=== PATIENT | female | born 1980 | race Caucasian/White ===

== ENCOUNTER 2024-10-08 16:42 | Emergency (ER) | payer BC ==
[~2024-10-08] VITALS: Ht 180.3 cm; Wt 69.1 kg
[2024-10-08 17:04] VITALS: TEMP 97.6
--- NOTE | 2024-10-08 17:14 | Physician Documentation ---
History of Present Illness ~ Chief Complaint: Flank Pain Stated Complaint: BACK PAIN Time Seen by MD: 18:03 OK to notify your PCP?: Yes Source: patient Mode of Arrival: POV Exam Limitations: no limitations HPI 44-year-old female presents for spontaneous left-sided flank pain which started at 3:00 p.m. today with associated nausea and vomiting she did take 650 mg of Tylenol prior to arrival and experienced some symptom relief. She endorses increase urinary frequency, no hematuria or lower abdominal pain. She does not have a history of kidney stones. Medication Reconciliation Allergies: Coded Allergies: aspirin (Verified Allergy, Unknown, 10/08/24) ibuprofen (Verified Allergy, Unknown, RASH, 10/08/24) Review of Systems All Other Systems at this time: Reviewed and Negative Physical Exam Vital Signs: RN Vital Signs have been reviewed: Yes, Temperature: 97.6, Source: Oral, Heart Rate: 85, Respiratory Rate: 16, BP: 127/72, Pulse Oximetry: 99, Weight: 69.100 Oxygen Flow Rate: 0 Pulse Oximetry Reflects: adequate oxygenation Physical Exam General: Alert, no distress. HEENT: No injection, moist mucous membranes. Neck: Full range of motion. Respiratory: No respiratory distress, equal chest rise and fall. Chest: No accessory muscle use. Cardiovascular: Regular rate and rhythm. Gastrointestinal: Nondistended. Extremities: Normal range of motion, no deformity. Neurologic: Oriented x4. Psychiatric: Normal mood and affect. Skin: Normal color, warm and dry. Progress Results/Orders Results/Orders Orders - SIDRA LOPEZ MD Ct Abdomen Pelvis (10/08/24 18:03) Completed Orders - SIDRA LOPEZ MD Ct Abdomen Pelvis (10/08/24 18:03) Vital Signs 10/08/24 10/08/24 10/08/24 10/08/24 17:04 18:52 18:52 20:58 Temp 97.6 Pulse 85 68 65 Resp 16 18 18 18 B/P (MAP) 127/72 123/70 (87) 126/74 Pulse Ox 99 98 98 O2 Flow Rate 0 Laboratory Tests Test 10/08/24 17:20 10/08/24 17:31 Urine Specimen Description Cln catch midstream Urine Color Yellow Urine Clarity Slightly cloudy Urine pH 6.0 Urine Specific Mullan 1.025 Urine Protein Trace Urine Glucose (UA) Negative Urine Ketones 15 H Urine Occult Blood Large H Urine Nitrite Negative Urine Bilirubin Negative Urine Urobilinogen 0.2 Urine Leukocyte Esterase Negative Urine RBC 50-100 Urine WBC 0-4 Urine Squamous Epithelial Cells Few Urine Bacteria None seen Urine Mucus Few Urine Culture Indicated Not ind Volume Urine Centrifuged 10 ml Urine HCG, Qualitative Negative Urine Comment White Blood Count 6.7 Red Blood Count 5.00 Hemoglobin 15.2 Hematocrit 45.4 H Mean Corpuscular Volume 91.0 Mean Corpuscular Hemoglobin 30.4 Mean Corpuscular Hemoglobin Concent 33.4 Red Cell Distribution Width 13.3 Platelet Count 218 Mean Platelet Volume 9.3 Neutrophils (%) (Auto) 78.1 H Lymphocytes (%) (Auto) 18.1 L Monocytes (%) (Auto) 2.7 Eosinophils (%) (Auto) 0.9 Basophils (%) (Auto) 0.2 Neutrophils # (Auto) 5.2 Lymphocytes # (Auto) 1.2 Monocytes # (Auto) 0.2 Eosinophils # (Auto) 0.1 Basophils # (Auto) 0.0 CBC Comment Sodium Level 141 Potassium Level 4.6 Chloride Level 104 Carbon Dioxide Level 27.4 Anion Gap 10 Blood Urea Nitrogen 23 H Creatinine 0.93 H Estimated GFR/1.73 m2 65 BUN/Creatinine Ratio 24.7 H Glucose Level 107 H Calcium Level 9.8 Albumin 4.9 Chemistry Comments Medical Decision Making Findings 44 year old female with severe L flank pain today which is now resolved by the time I examine her. Her workup was significant for blood in the urine and faint hydronephrosis of the L ureter, consistent with a kidney stone which had already passed. Also noted was an incidental R kidney mass of about 6cm in size, which we spent some time discussing with the patient, particularly the importance of following up immediately with her PCP to arrange a surgical biopsy. She and her significant other verbalized an understanding of the importance of following up on this incidental finding. Counseled, reassured, discharged with return precautions. Departure Disposition: 01 HOME / SELF CARE / HOMELESS Impression: Primary Impression: Calculus of kidney Condition: Stable Discharge Instructions: Kidney Stones Referrals: NO PRIMARY CARE PROVIDER (PCP) Education Educated: Patient, Family Educated regarding: diagnosis, treatment, prognosis, need for follow up Additional Comment Medical Screen Exam This patient recieved a medical screening examination. After reviewing the individual's medical complaints with presenting symptoms and performing an appropriate physical examination, it was determined that no immediate life- threatening emergency medical condition is present. This individual is also not a women having contractions. Signature Scribe Signature: . Attestation: . MILI CERNA Oct 08, 2024 17:14 SIDRA LOPEZ MD Oct 08, 2024 18:48
[2024-10-08 17:41] LABS: MEAN PLATELET VOLUME 9.3 FL (7.4-10.4); RED CELL DISTRIBUTION WIDTH 13.3 % (11.5-14.5)
[2024-10-08 17:45] LABS: LEUKOCYTE ESTERASE ,URINE NEGATIVE (Neg); NITRITES, URINE NEGATIVE (Neg); OCCULT BLOOD,URINE LARGE (Neg)
[2024-10-08 17:48] LABS: UA COLLECTION TYPE CLN CATCH MIDSTREAM
[2024-10-08 17:50] LABS: CREATININE 0.93 MG/DL (0.40-0.90); TOTAL CARBON DIOXIDE 27.4 MMOL/L (24-32); eCRCL 83 ML/MIN; eGFR 65 ML/MIN
[2024-10-08 17:52] LABS: MUCUS STRANDS FEW /LPF (Neg); SQUAMOUS EPITHELIAL CELL,UR FEW /LPF (FEW)
[2024-10-08 17:54] LABS: URINE HCG NEGATIVE (NEG)
--- NOTE | 2024-10-08 18:55 | RADIOLOGY REPORT ---
Exam: CT CT ABDOMEN PELVIS History: flank pain Comparison Study: None Technique: Multidetector spiral CT of the abdomen was performed from lung bases to pubic symphysis. Imaging was performed without IV contrast. Axial, coronal and sagittal multiplanar reformats were ob tained from the axial data set by the technologist. Radiation Dose : 1. Abdomen/Pelvis: CTDIvol 9.4 mGy, DLP 501 mGy*cm. Findings: Evaluation of solid organs is limited due to lack of intravenous contrast use. Lung Bases: No acute or significant lung base finding. Normal heart size. No pleural or pericardial effusion. Liver: The liver is normal in size. No focal lesions. Gallbladder and Biliary Tree: Cholelithiasis noted without secondary findings of cholecystitis or eugenio iary obstruction. Spleen: Unremarkable Pancreas: The pancreas is grossly normal in appearance. Adrenal Glands: Unremarkable Kidneys: Heterogeneous mass is seen in the right kidney measuring 6.2 x 7.7 cm, highly concerning for neoplastic process. No hydronephrosis. Bladder: Grossly unremarkable for degree of distention. Bowel: The stomach is grossly normal in appearance. Small bowel and colon are normal in caliber and d istribution. The appendix is not visualized; however, no secondary findings of acute appendicitis id entified. Ascites: Absent Lymphadenopathy: No mesenteric, retroperitoneal or periportal lymphadenopathy. Abdominal Wall and Mesentery: Unremarkable. Vasculature: The visualized abdominal aorta is normal in size and caliber. Evaluation of abdominal a nd pelvic vessels is limited due to lack of intravenous contrast. Pelvic Organs: Unremarkable Musculoskeletal: No aggressive focal bony lesions, acute fractures or dislocation. IMPRESSION: 1. Heterogeneous mass is seen in the right kidney measuring 6.2 x 7.7 cm, highly concerning for neopl astic process. Recommend correlation with contrast-enhanced CT or MRI. 2. Cholelithiasis. Radiation optimization: All CT scans at this facility use at least one of these dose optimization mera hniques: automated exposure control mA and/or kV adjustment per patient size (includes targeted exam s where dose is matched to clinical indication) or iterative reconstruction.
[2024-10-08 20:58] VITALS: BP 126/74; PULSE 65; RESP 18; O2SAT 98
== END 2024-10-08 20:00 | disposition home or self-care (01) ==
LOC: ER 16:43
DX: N20.0 Calculus of kidney (principal); Z88.6 Allergy status to analgesic agent
CPT/HCPCS: 36415; 74176; 80048; 81001; 81025; 85025; 99284; J7030